=== PATIENT | female | born 1995 | race Two or more races ===

== ENCOUNTER 2019-05-25 14:39 | Emergency (ER) | payer SELFPAY ==
--- NOTE | 2019-05-25 16:26 | ER Document Report ---
ED Medical Screen (RME) - General Chief Complaint: Cold Symptoms Stated Complaint: COUGH Time Seen by Provider: 05/25/19 16:23 TRAVEL OUTSIDE OF THE [place] IN LAST 30 DAYS: No - HPI Notes: 05/25/19 16:25 Patient is a 23-year-old female no significant past medical history who presents complaining of midsternal chest pain that will occasionally radiate to her back as well as take her breath away on occasion. This began 2 days ago. No recent illness. Denies any prolonged immobilization, distance travel, recent surgery/trauma, personal cancer history, hormone use, smoking, or previous DVT/PE. Denies SIMPSON, fever, neck pain, URI, n/v/d, Abd pain, dysuria, or rash. I have treated and performed a rapid initial assessment of this patient. A comprehensive ED assessment and evaluation of the patient, analysis of test results and completion of medical decision making process will be conducted by additional ED providers. PHYSICAL EXAMINATION: GENERAL: Well-appearing, well-nourished and in no acute distress. A&Ox4. Answers questions appropriately. LUNGS: Breath sounds clear to auscultation bilaterally and equal. No wheezes rales or rhonchi. HEART: Regular rate and rhythm without murmurs, rubs, gallops. Extremities: No cyanosis, clubbing, or edema b/l. Yovany negative bilaterally. No lower extremity asymmetry. NEUROLOGICAL: Normal speech, normal gait. PSYCH: Normal mood, normal affect. - Related Data Allergies/Adverse Reactions: shrimp Allergy (Verified 03/28/17 13:03) Past Medical History Renal/ Medical History: Denies: Hx Peritoneal Dialysis - Immunizations Hx Diphtheria, Pertussis, Tetanus Vaccination: Yes Physical Exam - Vital signs Vitals: Temp Pulse Resp BP Pulse Ox 98.0 F 85 16 120/68 98 05/25/19 14:42 05/25/19 14:42 05/25/19 14:42 05/25/19 14:42 05/25/19 14:42 Course - Vital Signs Vital signs: Temp Pulse Resp BP Pulse Ox 98.0 F 85 16 120/68 98 05/25/19 14:42 05/25/19 14:42 05/25/19 14:42 05/25/19 14:42 05/25/19 14:42
--- NOTE | 2019-05-25 17:46 | RADIOLOGY REPORT (SQ) ---
EXAM DESCRIPTION: CHEST 2 VIEWS COMPLETED DATE/TIME: 05/25/2019 5:00 pm REASON FOR STUDY: CP COMPARISON: None. EXAM PARAMETERS: NUMBER OF VIEWS: two views TECHNIQUE: Digital Frontal and Lateral radiographic views of the chest acquired. RADIATION DOSE: NA LIMITATIONS: none FINDINGS: LUNGS AND PLEURA: No opacities, masses or pneumothorax. No pleural effusion. MEDIASTINUM AND HILAR STRUCTURES: No masses or contour abnormalities. HEART AND VASCULAR STRUCTURES: Heart normal size. No evidence for failure. BONES: No acute findings. HARDWARE: None in the chest. OTHER: No other significant finding. IMPRESSION: No acute abnormality of the lungs. No focal airspace opacity. TECHNICAL DOCUMENTATION: JOB ID: [id number] [email or web address]- All Rights Reserved Reading location - IP/workstation name: [email or web address]
--- NOTE | 2019-05-25 17:52 | EKG REPORT ---
SEVERITY:- NORMAL ECG - SINUS RHYTHM : Confirmed by: Cuong Parish MD 25-May-2019 17:51:54
[2019-05-25 18:04] LABS: ABSOLUTE EOSINOPHILS # (AUTO) 0.2 10^3/uL (0.0-0.6); ABSOLUTE LYMPHOCYTES (AUTO) 2.1 10^3/uL (0.5-4.7); ABSOLUTE MONOCYTES (AUTO) 0.5 10^3/uL (0.1-1.4); ABSOLUTE NEUT (AUTO) 4.4 10^3/uL (1.7-8.2); BASOPHILS % (AUTO) 0.3 % (0-2); EOSINOPHILS % (AUTO) 2.6 % (0-6); HEMATOCRIT 36.6 % (36.0-47.0); HEMOGLOBIN 12.8 g/dL (12.0-15.5); LYMPHOCYTES % (AUTO) 29.2 % (13-45); MEAN CORPUSCULAR HEMOGLOBIN 29.2 pg (27.0-33.4); MEAN CORPUSCULAR VOLUME 83 fl (80-97); MONOCYTES % (AUTO) 6.4 % (3-13); PLATELET COUNT 286 10^3/uL (150-450); RED BLOOD COUNT 4.39 10^6/uL (3.72-5.28); RED CELL DISTRIBUTION WIDTH 13.2 % (11.5-14.0); SEGMENTED NEUTROPHILS % (AUTO) 61.5 % (42-78); TOTAL CELLS COUNTED % (AUTO) 100 %; WHITE BLOOD COUNT 7.2 10^3/uL (4.0-10.5)
[2019-05-25 18:22] LABS: ALBUMIN 4.6 g/dL (3.5-5.0); ALKALINE PHOSPHATASE 56 U/L (38-126); ANION GAP 10 (5-19); ASPARTATE AMINO TRANSFERASE 28 U/L (14-36); BILIRUBIN,DIRECT 0.1 mg/dL (0.0-0.4); BILIRUBIN,TOTAL 0.4 mg/dL (0.2-1.3); BLOOD UREA NITROGEN 10 mg/dL (7-20); CALCIUM 9.1 mg/dL (8.4-10.2); CARBON DIOXIDE 29 mmol/L (22-30); CHLORIDE 99 mmol/L (98-107); GLUCOSE 105 mg/dL (75-110); POTASSIUM 3.8 mmol/L (3.6-5.0)
[2019-05-25] MEDS ORDERED: MAG HYDROX/AL HYDROX/SIMETH SUSP 30 ML UDCUP PO ONE (18:58)
[2019-05-25] MEDS ORDERED: METOCLOPRAMIDE HCL ORAL SOLN 10 MG/10 ML UDCUP PO ONE (18:58)
[2019-05-25] MEDS ORDERED: LIDOCAINE 2% VISCOUS SOLN 20 ML UDCUP PO ONE (18:58)
--- NOTE | 2019-05-25 19:07 | ER Document Report ---
ED Cardiac - General Chief Complaint: Chest Pain Stated Complaint: COUGH Time Seen by Provider: 05/25/19 16:23 Notes: Patient is a 23-year-old female who presents the emergency department with a chief complaint of chest pain. Patient reports she has had intermittent chest pain over the past 2 days. Patient reports this is located in the center of her chest and sometimes will radiate into her back. Patient reports that greasy foods, movement, pressing on her chest seems to make the chest pain worse. Patient reports she has been battling a productive cough with green sputum for about 1 week. She reports that everyone in her family has had an upper respiratory infection. Patient denies fever. Patient reports mild body aches. Patient also reports having epigastric abdominal pain. Patient reports nausea without vomiting or diarrhea. Patient denies rash. TRAVEL OUTSIDE OF THE [place] IN LAST 30 DAYS: No - Related Data Allergies/Adverse Reactions: shrimp Allergy (Verified 03/28/17 13:03) Past Medical History - General Information source: Patient - Social History Smoking Status: Never Smoker Chew tobacco use (# tins/day): No Frequency of alcohol use: None Drug Abuse: None Lives with: Family Family History: Reviewed & Not Pertinent Patient has suicidal ideation: No Patient has homicidal ideation: No - Past Medical History Cardiac Medical History: Reports: None Pulmonary Medical History: Reports: None EENT Medical History: Reports: None Neurological Medical History: Reports: None Endocrine Medical History: Reports: None Renal/ Medical History: Reports: None. Denies: Hx Peritoneal Dialysis Malignancy Medical History: Reports: None GI Medical History: Reports: None Musculoskeletal Medical History: Reports None Skin Medical History: Reports None Psychiatric Medical History: Reports: None Traumatic Medical History: Reports: None Infectious Medical History: Reports: None Surgical Hx: Negative - Immunizations Hx Diphtheria, Pertussis, Tetanus Vaccination: Yes Review of Systems - Review of Systems Constitutional: No symptoms reported EENT: No symptoms reported Cardiovascular: See HPI Respiratory: See HPI Gastrointestinal: See HPI Genitourinary: No symptoms reported Female Genitourinary: No symptoms reported Musculoskeletal: No symptoms reported Skin: No symptoms reported Hematologic/Lymphatic: No symptoms reported Neurological/Psychological: No symptoms reported Physical Exam - Vital signs Vitals: Temp Pulse Resp BP Pulse Ox 98.0 F 85 16 120/68 98 05/25/19 14:42 05/25/19 14:42 05/25/19 14:42 05/25/19 14:42 05/25/19 14:42 Interpretation: Normal - Notes Notes: GENERAL: Well-appearing, well-nourished and in no acute distress. HEAD: Atraumatic, normocephalic. EYES: Pupils equal round and reactive to light, extraocular movements intact, sclera anicteric, conjunctiva are normal. ENT: Nares patent, oropharynx clear without exudates. Moist mucous membranes. NECK: Normal range of motion, supple without lymphadenopathy or JVD. LUNGS: Breath sounds clear to auscultation bilaterally and equal. No wheezes rales or rhonchi. No cough noted during examination. HEART: Regular rate and rhythm without murmurs, rubs or gallops. Reproducible midsternal chest pain. ABDOMEN: Soft, mild epigastric discomfort with palpation, other parts of abdomen nontender and unremarkable, normoactive bowel sounds. No guarding, no rebound. No masses appreciated. BACK: No cervical, thoracic, lumbar midline tenderness. No saddle anesthesia, normal distal neurovascular exam. No CVA tenderness. GENITOURINARY: Deferred. EXTREMITIES: Normal range of motion, no pitting or edema. No clubbing or cyanosis. NEUROLOGICAL: Cranial nerves II through XII grossly intact. Normal speech, normal gait. PSYCH: Normal mood, normal affect. SKIN: Warm, Dry, normal turgor, no rashes or lesions noted. Course - Re-evaluation Re-evalutation: 05/25/19 19:05 Patient's blood work was negative. Patient did have a normal EKG as well as a negative troponin. Patient's chest pain is reproducible with palpation. Symptoms are most likely due to a musculoskeletal type pain from the recent cough. Patient also has epigastric discomfort. Patient reports this is slightly worse when eating greasy foods. We will give her a GI cocktail. 05/25/19 19:36 Patient reports slight improvement of epigastric pain after the GI cocktail. Patient to be discharged she is nontoxic-appearing and stable. Labs are unremarkable. We will treat her for a gastritis as well as chest wall pain, due to musculoskeletal strain. - Vital Signs Vital signs: Temp Pulse Resp BP Pulse Ox 98.0 F 85 16 120/68 98 05/25/19 14:42 05/25/19 14:42 05/25/19 14:42 05/25/19 14:42 05/25/19 14:42 - Laboratory Result Diagrams: 05/25/19 17:15 05/25/19 17:15 Laboratory results interpreted by me: 05/25/19 17:15 Creatinine 0.51 L 05/25/19 19:06 Laboratory 05/25/19 05/25/19 05/25/19 17:15 17:15 17:15 WBC 7.2 RBC 4.39 Hgb 12.8 Hct 36.6 MCV 83 MCH 29.2 MCHC 35.0 RDW 13.2 Plt Count 286 Lymph % (Auto) 29.2 Graham % (Auto) 6.4 Eos % (Auto) 2.6 Baso % (Auto) 0.3 Absolute Neuts (auto) 4.4 Absolute Lymphs (auto) 2.1 Absolute Monos (auto) 0.5 Absolute Eos (auto) 0.2 Absolute Basos (auto) 0.0 Seg Neutrophils % 61.5 Sodium 137.5 Potassium 3.8 Chloride 99 Carbon Dioxide 29 Anion Gap 10 BUN 10 Creatinine 0.51 L Est GFR ( Amer) > 60 Est GFR (MDRD) Non-Af > 60 Glucose 105 Calcium 9.1 Total Bilirubin 0.4 Direct Bilirubin 0.1 Neonat Total Bilirubin Not Reportable Neonat Direct Bilirubin Not Reportable Neonat Indirect Bili Not Reportable AST 28 ALT 31 Alkaline Phosphatase 56 Troponin I < 0.012 Total Protein 8.0 Albumin 4.6 - Diagnostic Test Radiology reviewed: Reports reviewed Radiology results interpreted by me: 05/25/19 19:05 Chest X-Ray 05/25/19 16:24 IMPRESSION: No acute abnormality of the lungs. No focal airspace opacity. - EKG Interpretation by Me Additional EKG results interpreted by me: 05/25/19 19:19 Patient's EKG shows a sinus rhythm with a heart rate of 81. Patient's ME interval 144, QT is 396, QTc is 460. Patient has a normal axis deviation. There is no ST segment changes in consecutive leads. There is no old EKG for comparison. Discharge - Discharge Clinical Impression: Chest wall pain, Epigastric pain Gastritis Qualifiers: Gastritis type: unspecified gastritis Chronicity: acute Gastritis bleeding: without bleeding Qualified Code(s): K29.00 - Acute gastritis without bleeding Condition: Stable Disposition: HOME, SELF-CARE Additional Instructions: Today we seen in the emergency department for epigastric pain and chest wall pain. Your blood work, EKG, chest x-ray were unremarkable. I do believe your chest wall pain is due to musculoskeletal injury which could be due from coughing. Please take anti-inflammatories such as ibuprofen. Staff chest pain is typically worse with movement. You can also use cold packs to the area or warm packs depending on what feels better for you. Please seek medical attention if you develop fever or worsening cough. Also appears that he may have a gastritis. Am giving you a prescription for Pepcid. Take this daily. Please avoid spicy foods and aspirin, caffeine, tobacco and alcohol while you are currently having symptoms. Please return emergency department if you develop any black or tarry stool, lightheadedness, dizziness, severe chest pain or any new or worsening symptoms. Chest Wall Pain Your chest pain has been diagnosed as coming from the chest wall. This is of ten caused by straining the muscles or joints in the chest during physical activity, direct trauma, coughing, or vigorous vomiting. Persons with arthritis are especially prone to this type of pain, due to inflammation of the cartilage joints near the breast bone. Occasionally, no cause can be found. Rest from strenuous physical activity. This kind of chest pain is usually made worse by movement of the chest. Depending on the symptoms, we may prescribe medicine for pain, muscle relaxation, and antiinflammatory effects. If the pain is new, and seems to be due to muscle strain, cold packs can help. Otherwise, apply gentle warmth to the painful area for 15 minutes every hour or two. You should contact the doctor immediately if things change. Further evaluation is needed if you develop a fever or cough, if the nature of the pain changes, or if you become short of breath. Gastritis You have an inflammation of the stomach called gastritis. This commonly causes upper abdominal pain, nausea, and vomiting. In severe cases, bleeding of the stomach lining can occur. Gastritis can be caused by bacteria or viruses, alcohol, or stomach-irritating drugs. Begin with sips of clear liquids. Take increasing amounts of fluid over the first 24 hours. Then start small amounts of bland foods (such as dry toast, applesauce, mashed potato). Gradually resume your usual diet. You should take antacids every two hours until the pain has subsided. Acid-suppressing drugs may be prescribed as well. Avoid aspirin, caffeine, tobacco, and alcohol. If the abdominal pain worsens, or there is evidence of major bleeding in the stomach (such as black, tarry stool, bloody or black vomit, or lightheadedness), you should return immediately. Call the doctor if you aren't improved in 24 to 36 hours. Prescriptions: Famotidine [Pepcid 20 mg Tablet] 20 mg PO DAILY #30 tablet Forms: Return to Work Referrals: FEDE LR MD [ACTIVE STAFF] - Follow up as needed
[2019-05-25 19:53] VITALS: BP 125/74
== END 2019-05-25 19:56 | disposition home or self-care (01) ==
LOC: ER 14:39
DX: K29.00 Acute gastritis without bleeding (principal); R07.89 Other chest pain; R10.13 Epigastric pain; R05 Cough; R11.0 Nausea
CPT/HCPCS: 93005; 99285; 36415; 85025; 80053; 84484; 71046; 93010; J3490